=== PATIENT | female | born 1950 | race Caucasian/White ===

== ENCOUNTER 2021-01-11 06:20 | Day surgery (SDC) | payer MEDICARE, MEDICAID ==
[~2021-01-11] VITALS: Ht 157.5 cm; Wt 94.8 kg
[~2021-01-11 06:20] MED LIST: ACETYLCHOLINE CHLORIDE INTRAOCULAR SOLUTION 1:100 ELECTROLYTE DILUENT IO ONE; BALANCED SALT IRRIG SOLN 15ML ONE; BUPIVACAINE HCL/PF 0.75% (7.5MG/ML) 10ML ONE; LIDOCAINE HCL 2%/EPINEPHRINE 1:100,000 20 ML VIAL INFIL ONE; PHENYLEPHRINE 2.5% OPHTH 15 DROP/ML BOTTLE RIGHTEYE SCH; PHENYLEPHRINE HCL 2.5% OPHTH DROPS 2ML ONE; TETRACAINE 0.5% OPHTH DROPS 4ML ONE; TROPICAMIDE 1% OPHTH DROPS 15ML ONE; TROPICAMIDE 1% OPHTH DROPS 15ML RIGHTEYE SCH
[2021-01-11 06:29] LABS: BASOPHILS % 0.4 % (0.0-2.0); EOSINOPHILS % 2.5 % (0.0-5.0); HEMATOCRIT. 34.1 % (36.0-48.0); HEMOGLOBIN. 10.8 g/dL (12.0-16.0); LYMPHOCYTES % 21.5 % (20.0-50.0); MEAN CORPUSCULAR HEMOGLOBIN 27.8 pg (28.0-32.0); MEAN CORPUSCULAR VOLUME 87.8 fL (81.0-99.0); MONOCYTES % 6.4 % (2.0-8.0); NEUTROPHILS % 69.2 % (40.0-76.0); PLATELET 281 x1000/uL (130-400); RED BLOOD CELL COUNT 3.88 mill/uL (4.2-5.4); RED CELL DISTRIBUTION WIDTH 14.2 % (11.6-14.6)
[2021-01-11] MEDS ORDERED: DOCU-150 PO (06:37)
[2021-01-11] MEDS ORDERED: CHOL100046 PO (06:37)
[2021-01-11] MEDS ORDERED: HJ10 IJ (06:37)
[2021-01-11] MEDS ORDERED: ACET650T37 PO (06:37)
[2021-01-11] MEDS ORDERED: ROPI0.5T6 PO (06:37)
[2021-01-11] MEDS ORDERED: MELA5TAB19 PO (06:37)
[2021-01-11] MEDS ORDERED: PANT40TA51 PO (06:37)
[2021-01-11] MEDS ORDERED: NEPVIT PO (06:37)
[2021-01-11] MEDS ORDERED: INSU100V37 SQ (06:37)
[2021-01-11] MEDS ORDERED: FERR325T6 PO (06:37)
[2021-01-11] MEDS ORDERED: ATOR10TA69 PO (06:37)
[2021-01-11] MEDS ORDERED: REN800 PO (06:37)
[2021-01-11] MEDS ORDERED: LOSA25TA26 PO (06:37)
[2021-01-11] MEDS ORDERED: GABA-290 PO (06:37)
[2021-01-11] MEDS ORDERED: INSU100I28 SQ (06:37)
[2021-01-11] MEDS ORDERED: AMLO5TAB88 PO (06:37)
[2021-01-11] MEDS ORDERED: ASCO500C18 PO (06:37)
[2021-01-11] MEDS ORDERED: SENN-257 PO (06:37)
[2021-01-11] MEDS ORDERED: POLY17PO3 PO (06:37)
[2021-01-11] MEDS ORDERED: CITR473S4 PO (06:37)
[2021-01-11] MEDS ORDERED: TOBRAMYCIN/DEXAMETH 0.1/0.3% OPHTH SUSP 2.5ML ONE (06:56)
[2021-01-11] MEDS ORDERED: METHYLPREDNISOLONE SOD SUCC 40 MG/ML VIAL ONE (06:56)
[2021-01-11] MEDS ORDERED: HYALURONATE SODIUM 10 MG/ML 0.55ML SYRINGE IO ONE (06:57)
[2021-01-11] MEDS ORDERED: SODIUM CHLORIDE 0.9% 1,000 ML IV SCH (07:00)
[2021-01-11] MEDS ORDERED: BALANCED SALT IRRIG SOLN COMB1 500ML OP SCH (07:30)
== END 2021-01-11 11:00 | disposition home or self-care (01) ==
LOC: OR 06:20
PROVIDERS: ATTEND Ophthalmology
DX: H25.89 Other age-related cataract (principal); K21.9 Gastro-esophageal reflux disease without esophagitis; E78.5 Hyperlipidemia, unspecified; D64.9 Anemia, unspecified; Z79.899 Other long term (current) drug therapy; Z98.890 Other specified postprocedural states
CPT/HCPCS: 36415; 66984; 80048; 82962; 85025; C1893; J3490; V2632; J2920